=== PATIENT | female | born 1970 | race Caucasian/White ===

== ENCOUNTER → 2019-01-29 15:22 | Outpatient (CLI) | payer OTHER, SELFPAY ==
[2019-01-29 18:15] LABS: Absolute Lymphocyte Count 2.35 X10^3/ul (0.83-4.51); Absolute Neutrophil Count 4.7 X10^3/uL (2.0-7.7); Basophil# 0.02 X10^3/uL; Basophil% 0.3 % (0-1); Eosinophil# 0.14 X10^3/uL; Eosinophils% 1.8 % (0-5); Hematocrit 41.8 % (37-47); Hemoglobin 14.4 g/dl (12.0-15.0); Lymphocyte # 2.35 X10^3/ul (4.0); Lymphocyte % 29.6 % (19-41); Mean Corp Hgb Conc 34.4 g/gl (32-36); Mean Corpuscular Hgb 30.8 pg (27.0-32.0); Mean Corpuscular Volume 89.5 fL (81-99); Mean Platelet Vol. 10.5 fl (6.2-12.0); Monocyte# 0.68 X10^3/uL; Monocyte% 8.6 % (0-10); Neutrophil # 4.74 X10^3/uL (2.7-7.7); Neutrophil % 59.4 % (47-70); Platelet Count 302 K/mm3 (150-450); RBC Distribution Width CV 12.6 % (11.6-14.6); Red Blood Count 4.67 M/mm3 (4.2-5.4)
[2019-01-29 18:16] LABS: Thyroid Stim Hormone (TSH) 1.93 uIU/mL (0.358-3.74)
[2019-01-29 18:29] LABS: POSITIVE COUNT NO; POSITIVE DIFFERENTIAL NO; POSITIVE MORPHOLOGY NO
== END ==
PROVIDERS: Family Provider Family Medicine; PCP Family Medicine; Visit Provider Family Medicine
DX: R63.5 Abnormal weight gain (principal)
CPT/HCPCS: 36415; 84443; 85025

== ENCOUNTER → 2020-02-20 16:17 | Outpatient (CLI) | payer OTHER, SELFPAY ==
[2020-02-21 06:37] LABS: SARS-COV-2 TOTAL ABS Nonreactive (Nonreactive)
== END ==
PROVIDERS: PCP Family Medicine; Referring Provider Family Medicine; Visit Provider Family Medicine
DX: Z11.59 Encounter for screening for other viral diseases (principal)
CPT/HCPCS: 36415; 86769

== ENCOUNTER → 2020-09-15 16:32 | Outpatient (CLI) | payer OTHER, SELFPAY ==
[2020-09-15 17:48] LABS: Absolute Lymphocyte Count 2.93 X10^3/uL (0.83-4.51); Absolute Neutrophil Count 3.3 X10^3/uL (2.0-7.7); Basophil# 0.04 X10^3/uL; Basophil% 0.6 % (0-1); Eosinophil# 0.25 X10^3/uL; Eosinophils% 3.5 % (0-5); Hematocrit 39.7 % (37-47); Hemoglobin 14.2 g/dL (12.0-15.0); Lymphocyte # 2.93 X10^3/ul (4.0); Mean Corp Hgb Conc 35.8 g/dL (32-36); Mean Corpuscular Hgb 33.6 pg (27.0-32.0); Mean Corpuscular Volume 94.1 fL (81-99); Monocyte# 0.64 X10^3/uL; NRBC Flagged by Analyzer 0 % (0-5); Neutrophil # 3.27 X10^3/uL (2.7-7.7); Neutrophil % 45.6 % (47-70); Platelet Count 257 K/mm3 (150-450); RBC Distribution Width SD 43.8 fl (35.1-43.9); Red Blood Count 4.22 M/mm3 (4.2-5.4); White Blood Count 7.2 K/mm3 (4.4-11.0)
[2020-09-15 18:09] LABS: BNP,B-Type NATRIURETIC PEPTIDE 14.9 pg/mL (0-100)
[2020-09-15 18:15] LABS: Thyroid Stim Hormone (TSH) 2.25 uIU/mL (0.358-3.74)
== END ==
PROVIDERS: PCP Family Medicine; Referring Provider Family Medicine; Visit Provider Family Medicine
DX: R06.02 Shortness of breath (principal)
CPT/HCPCS: 36415; 83880; 84443; 85025

== ENCOUNTER → 2020-09-30 07:44 | Outpatient (CLI) | payer OTHER, SELFPAY ==
--- NOTE | 2020-09-30 07:48 | ECHOD_ITS ---
Reason For Study: Palps Procedure This was a 2D Doppler, Color Flow transthoracic echocardiogram. Exam performed in department. Left Ventricle Normal LV size. Left ventricular systolic function is normal. The estimated ejection fraction is 65 %. Stage 1 diastolic dysfunction. No regional wall motion abnormalities noted. Right Ventricle Normal RV size. Normal systolic function. Atria Normal left atrium. Normal right atrium. Mitral Valve Normal mitral valve. Trivial mitral valve insufficiency. Tricuspid Valve Normal tricuspid valve. Mild (1+) tricuspid valve insufficiency. Pulmonary artery systolic pressure is 26 mmHg. Aortic Valve Normal aortic valve. Trisinus/trileaflet aortic valve. Pulmonic Valve Normal pulmonic valve. Great Vessels Normal aortic root. The pulmonary artery is normal size. Normal inferior vena cava. Pericardium/Pleural No pericardial effusion. MMode/2D Measurements & Calculations LVIDd: 4.0 cm IVSd: 0.72 cm Ao root diam: 2.7 cm LVIDs: 2.8 cm LVPWd: 0.86 cm RVDd: 3.0 cm FS: 30.6 % LAV(MOD-bp): 23.9 ml EDV(MOD-sp4): 88.9 ml EDV(MOD-sp2): 91.6 ml LAV(MOD-bp) Indexed: 13.9 ml/m2 ESV(MOD-sp4): 37.3 ml EF(MOD-sp2): 59.9 % LAV(MOD-sp2): 23.0 ml EF(MOD-sp4): 58.0 % LAV(MOD-sp4): 19.8 ml SV(MOD-sp4): 51.6 ml SV(MOD-sp2): 54.9 ml LA A4 area: 9.8 cm2 LA dimension(2D): 2.4 cm RA A4 area: 11.7 cm2 Doppler Measurements & Calculations MV E max chaz: 67.8 cm/sec Lat Peak E' Chaz: 14.3 cm/sec Med Peak E' Chaz: 10.5 cm/sec MV A max chaz: 70.8 cm/sec E/E' lat: 4.7 E/E' med: 6.5 MV E/A: 0.96 Ao V2 max: 116.4 cm/sec LV V1 max: 94.4 cm/sec PA V2 max: 91.3 cm/sec Ao max P.4 mmHg LV V1 max P.6 mmHg TR max chaz: 238.5 cm/sec TR max P.8 mmHg Interpretation Summary Normal LV size. Left ventricular systolic function is normal. The estimated ejection fraction is 65 %. Stage 1 diastolic dysfunction. Structurally normal valves. Ordering Physician: Nidia Tyson Performed By: Jackie Salazar RDCS
== END ==
PROVIDERS: PCP Family Medicine; Visit Provider Family Medicine
DX: R00.2 Palpitations (principal); R06.02 Shortness of breath
CPT/HCPCS: 93306

== ENCOUNTER → 2021-06-10 15:27 | Outpatient (CLI) | payer OTHER, SELFPAY ==
[2021-06-10 17:44] LABS: Anion Gap 7 (5-15); BUN 12 mg/dL (7-18); BUN/Creat Ratio 15.6 RATIO (10-20); Calcium,Total 8.5 mg/dL (8.5-10.1); Chloride 105 mmol/L (98-107); Cholesterol 166 mg/dL (200); Creatinine, Serum 0.77 mg/dL (0.55-1.02); EST Glomerular Filtration Rate 84 mL/min (>60); Est Glom Filt Rate - Afr Amer 102 mL/min (>60); Glucose 88 mg/dL (74-106); High Density Lipoprotein 51 mg/dL; Potassium 3.5 mmol/L (3.5-5.1); Sodium Level 141 mmol/L (136-145); Triglycerides 107 mg/dL; Very Low Density Lipoprotein 21 mg/dL (5-40)
== END ==
PROVIDERS: PCP Family Medicine; Referring Provider Family Medicine; Visit Provider Family Medicine
DX: Z00.00 Encounter for general adult medical examination without abnormal findings (principal)
CPT/HCPCS: 36415; 80048; 80061

== ENCOUNTER → 2022-02-03 | Outpatient (CLI) | payer OTHER, SELFPAY ==
[2022-02-03 12:31] LABS: Thyroid Stim Hormone (TSH) 1.24 uIU/mL (0.358-3.74)
== END | disposition home or self-care (01) ==
LOC: MFPLAB 10:02
PROVIDERS: PCP Family Medicine; Referring Provider Family Medicine; Visit Provider Family Medicine
DX: F41.9 Anxiety disorder, unspecified (principal)
CPT/HCPCS: 36415; 84443